=== PATIENT | male | born 1990 | race Caucasian/White ===

== ENCOUNTER 2017-06-07 21:42 | Emergency (ER) | payer MEDICAID ==
[2017-06-07] MEDS ORDERED: HYDROmorphone HCL 2 MG/ML VIAL SC ONE (22:15)
[2017-06-07] MEDS ORDERED: METHYLPREDNISOLONE SOD SUCC/PF 125 MG/2 ML VIAL IM ONE (22:15)
[2017-06-07] MEDS ORDERED: HYDROmorphone HCL 2 MG/ML VIAL ONE (22:25)
[2017-06-07] MEDS ORDERED: METHYLPREDNISOLONE SOD SUCC/PF 125 MG/2 ML VIAL ONE (22:25)
--- NOTE | 2017-06-07 22:29 | ERNOTE ---
Upper Extremity HPI - Narrative Date of Service: 06/07/17 - General Extremities Pain Location: shoulder: left Time Seen by Provider: 06/07/17 22:02 Source: patient - Immun/Allergies/Home Medications Immunizations: IMMUNIZATION HX Immunizations Up to Date Yes History of Influenza Vaccine No Hx Pneumococcal Vaccination No Allergies/Adverse Reactions: Allergies Allergy/AdvReac Type Severity Reaction Status Date / Time No Known Allergies Allergy Verified 06/07/17 21:56 Home Medications: HOME MEDICATIONS HYDROcodone/ACETAMINOPHEN [[place] 10-325 Tablet] 1 - 2 each PO Q4H PRN #20 tablet 06/07/17 [Last Taken Unknown] predniSONE [Prednisone] 3 tab PO DAILY #15 tab 06/07/17 [Last Taken Unknown] - History of Present Illness Narrative: This is a 26-year-old right-hand dominant male who comes to the emergency department complaining of severe pain involving his left shoulder for the last couple of days. 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 The patient denies any recent trauma. He denies falling or hitting the shoulder on anything. He says the pain was in his right shoulder up until a couple of days ago. He was treated with hydrocodone and Robaxin along with anti-inflammatories for the right shoulder pain and says that Better the pain on the left shoulder is not getting better with the same treatment. Patient says occasionally he will get sharp electric-like jolts down to his elbow. He denies any loss of strength. He says most of the pain is posteriorly along the along the medial and inferior aspects of the left scapula. No other skin symptoms or complaints Review of Systems - Review of Systems Constitutional: Present: no symptoms reported EYE: Present: no symptoms reported ENT: Present: no symptoms reported Respiratory: Present: no symptoms reported Cardiology: Present: no symptoms reported Gastrointestinal/Abdominal: Present: no symptoms reported Musculoskeletal: Present: See HPI, muscle pain, neck pain Neurological: Present: no symptoms reported Endocrine: Present: no symptoms reported Hematologic/Lymphatic: Present: no symptoms reported Psych: Present: no symptoms reported All Other Systems: All systems neg except as marked - Patient's Past Medical History Patient History - Medical: No pertinent hx Patient History - Cardiac/Respiratory: No pertinent hx Patient History - Cancer: No Hx of Cancer Patient History - Surgical Procedures: Ear Tubes Patient History - Other: None - Family History Mother Family History - Medical: Diabetes Type 2 Family History - Cardiac/Respiratory: Hypertension, Hyperlipidemia Father Family History - Medical: History Unknown - Social History Living Situations: home Abuse History: No History of abuse Psych History: No pertinent hx Smoking Status: Current every day smoker Have you smoked in the past 12 months: Yes Do you dip or chew tobacco: No Patient requests Smoking Cessation Consult: No Initiate information on Smoking Cessation: No Alcohol Use: rarely Drug Use: none - Immunizations Immunizations Up to Date: Yes Hx Pneumococcal Vaccination: No History of Influenza Vaccine: No Physical Exam - Physical Exam General Appearance: Present: wd/wn, alert, other - well-developed well- nourished gentleman sitting up in a chair. He appears to be uncomfortable but is not in distress. Head Exam: Present: normal inspection, no evidence of injury Eye Exam: Normal inspection: bilateral, PERRL: bilateral, EOMI: bilateral Ears, Nose, Throat: Present: normal ENT inspection, normal pharynx Neck: Present: normal inspection, nontender, other - patient is holding his neck angled to the right. This is opening the neural foramen on the left. This is the resting position which makes him most comfortable. There are no masses palpable. Respiratory: Present: no respiratory distress, normal breath sounds, no accessory muscle use, lungs clear Cardiovascular/Chest: Present: regular rate, rhythm, no murmur, normal peripheral pulses Gastrointestinal/Abdominal: Present: normal bowel sounds, nontender, nondistended, soft, no organomegaly Back Exam: Present: other - patient has no vertebral tenderness in the cervical spine or the thoracic spine. No reproducible tenderness to palpation of any of the muscles or in any of the areas where he is having discomfort. Extremity Exam: Present: normal inspection, non-tender, normal range of motion, no edema, other - full range of motion of the shoulder arm and hand. The pain while it is located in these areas does not seem to originate there Neurological Exam: Present: alert, oriented, normal mood/affect, no motor/ sensory deficits, other - distal motor and sensory in the left upper extremity are normal pulses are her normal Skin Exam: Present: normal color, warm/dry Lymphatic Exam: Present: no adenopathy ED Progress - Vital Signs Patient's Vital Signs:: I have reviewed the patient's vital signs. Vital Signs: Vital Signs 06/07/17 21:56 Temperature 37 C Pulse Rate 76 Respiratory 12 Rate Blood Pressure 137/76 O2 Sat by Pulse 98 Oximetry - Progress/Reassessment Chief Complaint: Shoulder Injury/Pain Plan - Plan Plan: I discussed with the patient that his symptoms certainly sound like cervical radiculopathy. The characteristic location of the pain inferior and medial to the scapula is commonly described in C5 6 disc disease. I've explained to him that the tests necessary to make an appropriate diagnosis is an MRI and that this is not available. He shortly certainly does not show any signs of myelopathy or significant neuropathy. His primary symptoms pain. I'm going to therefore came treatment at alleviation of the symptoms. I have given him a dose of steroids here and I will send him home with 5 days of steroids. He is instructed to stop the Robaxin, it has absolutely no utility in upper back pain. It is only been shown to be effective for acute lower back pain of less than 2 weeks duration and then only in individuals under the age of 55. I have instructed him to continue taking the ibuprofen as he has been. This is 800 mg every 8 hours. He was previously on hydrocodone 5 mg but admits to taking 2 of them was not adequate to help with his pain. I will give him an additional prescription for 10 mg Greybull he can take 1 or 2 every 4 hours as needed for pain. The patient does have a family doctor. He will call on Friday and tell them they need to get him in. He will need an MRI. I discussed this with the family and the patient and they are happy with this Departure Clinical Impression: Cervical radiculopathy - Departure Disposition: Home self-care Condition: Stable Instructions: Cervical Radiculopathy, [id number] Additional Instructions: As we discussed, the symptoms are describing are what I would expect if you had an irritated nerve in your neck. Unfortunately, the test to appropriately diagnose this, and MRI, is not available this evening or tomorrow. I want you to call your family doctor on Friday, make sure you tell him you were seen in the emergency department and that the emergency doctor once he did have a neck MRI to look for a pinched nerve. He should be able to schedule this for you I want you to take the prescribed prednisone. Take it for all 5 days. Continue taking ibuprofen. Take 800 mg every 8 hours. I want you to take the prescribed Greybull. If one tablet is not adequate he may take 2. He may take 2 tablets of the 10 mg hydrocodone every 4 hours as needed for pain. If you develop weakness in her hand. If you develop complete numbness which doesn't get better in her hand, or you develop any new worrisome symptoms he needs to return to the ER immediately. Referrals: Tony Mercado APRN [Primary Care Provider] - Prescriptions: HYDROcodone/ACETAMINOPHEN [[place] 10-325 Tablet] 1 - 2 each PO Q4H PRN #20 tablet PRN Reason: Pain predniSONE [Prednisone] 3 tab PO DAILY #15 tab
[2017-06-07 23:02] VITALS: BP 135/86
== END 2017-06-07 22:58 | disposition home or self-care (01) ==
LOC: ER 21:42
DX: M54.12 Radiculopathy, cervical region (principal); F17.200 Nicotine dependence, unspecified, uncomplicated

== ENCOUNTER 2017-08-11 12:00 | Emergency (ER) | payer MEDICAID ==
[2017-08-11 12:08] VITALS: BP 137/98
--- NOTE | 2017-08-11 12:38 | ERNOTE ---
Back Pain ER HPI Time Seen by Provider: 08/11/17 12:11 Source: patient Exam Limitations: no limitations Immunizations: IMMUNIZATION HX Immunizations Up to Date Yes History of Influenza Vaccine No Hx Pneumococcal Vaccination No Allergies/Adverse Reactions: Allergies No Known Allergies Allergy (Verified 08/11/17 12:09) Home Medications: HOME MEDICATIONS HYDROcodone/ACETAMINOPHEN [[place] 5-325] 1 tab PO Q4H PRN 08/11/17 [Last Taken Unknown] Narrative: Patient states that he had neck surgery a week ago by Dr Gerardo ([facility], [place]) he was discharge on the same day he had surgery on vicodin for pain controll. He pain had been getting better but then got worse again yesterday during the day. He denies any injury (has been sleeping on the couch at times) no weakness , no numbness, no fever. The pain is worse in the occipital area at the base of the skull Timing: Reports: getting worse Quality/Severity: Reports: severe Activities at Onset: Reports: none Modifying Factors - (Improves): Reports: other - pain meds Modifying Factors - (Worsens): Reports: movement flexion Associated Symptoms: Denies: fever/chills, problems urinating, difficulty walking, numbess/weakness in legs Prior Treament: Reports: recently seen Review of Systems - Review of Systems Constitutional: Present: recent illness - surgery. Absent: fever EYE: Absent: double vision ENT: Absent: nose congestion Respiratory: Absent: shortness of breath Cardiology: Absent: chest pain Gastrointestinal/Abdominal: Absent: nausea, vomiting, abdominal pain Genitourinary: Present: no symptoms reported Musculoskeletal: Present: See HPI Neurological: Absent: headache, dizziness/light-headedness, weakness, numbness - Patient's Past Medical History Patient History - Medical: Other - cervical radiculopathy Patient History - Cardiac/Respiratory: No pertinent hx Patient History - Cancer: No Hx of Cancer Patient History - Surgical Procedures: Ear Tubes, Other, Orthopedic Patient History - Other: None - Family History Mother Family History - Medical: Diabetes Type 2 Family History - Cardiac/Respiratory: Hypertension, Hyperlipidemia Father Family History - Medical: History Unknown - Social History Abuse History: No History of abuse Psych History: No pertinent hx Smoking Status: Current every day smoker Have you smoked in the past 12 months: Yes - Immunizations Immunizations Up to Date: Yes Hx Pneumococcal Vaccination: No History of Influenza Vaccine: No Physical Exam - Physical Exam General Appearance: Present: wd/wn, alert, no apparent distress Head Exam: Present: normal inspection, no evidence of injury Eye Exam: Normal inspection: bilateral Neck: Present: other - anterior scar without redness, drainage nor swelling, posterior neck diffusely slightly tender, able to move in all directions but decreased range of motion Respiratory: Present: no respiratory distress, normal breath sounds, lungs clear Cardiovascular/Chest: Present: regular rate, rhythm, no murmur Back Exam: Present: normal inspection Neurological Exam: Present: alert, oriented, normal mood/affect, no motor/ sensory deficits Skin Exam: Present: normal color, warm/dry ED Progress - Vital Signs Patient's Vital Signs:: I have reviewed the patient's vital signs. Vital Signs: Vital Signs 08/11/17 12:05 Temperature 37 C Pulse Rate 106 H Respiratory 12 Rate Blood Pressure 137/98 O2 Sat by Pulse 98 Oximetry - X-Ray X-Ray #1 X-Ray: c-spine - normal hardware alignment Interpretation: Reviewed by me - Progress/Reassessment Chief Complaint: Neck Pain/Injury Progress Note-Subjective: 08/11/17 12:27 call to [facility] discussed with Shannan Del Real (neurosurgery NRP) consider getting C-spine pa and lateral,consider starting muscle relaxant, needs to take narcotics as instructed (reports that he crushed an snorted narcotic pill prior to getting surgery), appointment tomorrow 13:30 08/11/17 13:05 discussed xray results and plan states that he has flexeril at home and takes it at night only with no significant relieve, still has vicodin #10 left Departure Clinical Impression: Post-op pain, H/O cervical spine surgery - Departure Disposition: Home self-care Condition: Good Additional Instructions: follow up with your neurosurgeon at [facility] tomorrow at 1:30 take your pain medication as scheduled
== END 2017-08-11 13:15 | disposition home or self-care (01) ==
LOC: ER 12:00
DX: G89.18 Other acute postprocedural pain (principal); Z98.890 Other specified postprocedural states; F17.200 Nicotine dependence, unspecified, uncomplicated

== ENCOUNTER 2017-10-23 03:43 | Emergency (ER) | payer MEDICAID ==
[2017-10-23] MEDS ORDERED: CYCLOBENZAPRINE HCL 10 MG TABLET PO ONE (04:16)
[2017-10-23] MEDS ORDERED: CYCLOBENZAPRINE HCL 10 MG TABLET ONE (04:17)
--- NOTE | 2017-10-23 04:25 | ERNOTE ---
Back Pain ER HPI Time Seen by Provider: 10/23/17 04:05 Source: patient Exam Limitations: no limitations Immunizations: IMMUNIZATION HX Immunizations Up to Date Yes History of Influenza Vaccine No Hx Pneumococcal Vaccination No Allergies/Adverse Reactions: Allergies No Known Allergies Allergy (Verified 08/11/17 12:09) Home Medications: HOME MEDICATIONS Cyclobenzaprine HCl [Flexeril] 10 mg PO TID PRN #30 tab 10/23/17 [Last Taken Unknown] Narrative: Patient has a history of chronic neck pain. He had surgery in [place] in 2016. He states the pain never got significantly better and is significantly worse tonight. He denies any new injury, has been released back to work without restrictions and his work at [employer] is very physical. He is taking tylenol and ibuprofen for the pain, denies any neurodeficit. Timing: Reports: constant, getting worse Quality/Severity: Reports: moderate Location of pain: Reports: no radiation Activities at Onset: Reports: none Recent Injury?: Reports: no Associated Symptoms: Denies: fever/chills, constipation/incontinence, nausea/ vomiting Prior Treament: Reports: treated by physician, similar symptoms before Review of Systems - Review of Systems Constitutional: Absent: recent illness, fever, chills EYE: Absent: vision changes ENT: Absent: nose congestion, sore throat Respiratory: Absent: shortness of breath Cardiology: Absent: chest pain Gastrointestinal/Abdominal: Absent: nausea, abdominal pain Genitourinary: Present: no symptoms reported Musculoskeletal: Present: See HPI Skin: Absent: rash Neurological: Absent: headache, weakness, numbness - Patient's Past Medical History Patient History - Medical: Chronic Pain, Other Patient History - Cardiac/Respiratory: No pertinent hx Patient History - Cancer: No Hx of Cancer Patient History - Surgical Procedures: Ear Tubes, Other, Orthopedic Patient History - Other: None - Family History Mother Family History - Medical: Diabetes Type 2 Family History - Cardiac/Respiratory: Hypertension, Hyperlipidemia Father Family History - Medical: History Unknown - Social History Living Situations: alone Abuse History: No History of abuse Psych History: No pertinent hx Smoking Status: Current every day smoker Have you smoked in the past 12 months: Yes Do you dip or chew tobacco: No Alcohol Use: none Drug Use: none - Immunizations Immunizations Up to Date: Yes Hx Pneumococcal Vaccination: No History of Influenza Vaccine: No Physical Exam - Physical Exam General Appearance: Present: wd/wn, alert, no apparent distress Head Exam: Present: normal inspection Ears, Nose, Throat: Present: normal pharynx Neck: Present: normal inspection, tender lateral - bilateral muscle spasms, other - slightly decreased ROM. Absent: tender posterior midline Respiratory: Present: no respiratory distress, normal breath sounds, no accessory muscle use, lungs clear Cardiovascular/Chest: Present: regular rate, rhythm, no murmur Gastrointestinal/Abdominal: Present: nontender Back Exam: Present: normal inspection, no vertebral tenderness Neurological Exam: Present: alert, oriented, normal mood/affect, no motor/ sensory deficits Skin Exam: Present: normal color, warm/dry ED Progress - Vital Signs Patient's Vital Signs:: I have reviewed the patient's vital signs. Vital Signs: Vital Signs 10/23/17 03:53 Temperature 37.1 C Pulse Rate 90 Respiratory 18 Rate Blood Pressure 120/80 O2 Sat by Pulse 99 Oximetry - Progress/Reassessment Chief Complaint: Neck Pain/Injury Departure Clinical Impression: H/O cervical spine surgery, Cervical spine pain - Departure Disposition: Home self-care Condition: Good Instructions: Spinal Fusion, [id number], Form - Excuse from Work, School, or Physical Activity Additional Instructions: call your neurosurgeon tomorrow for further instructions and work restrictions Prescriptions: Cyclobenzaprine HCl [Flexeril] 10 mg PO TID PRN #30 tab PRN Reason: MUSCLE SPASMS
[2017-10-23 04:31] VITALS: BP 112/77
== END 2017-10-23 04:22 | disposition home or self-care (01) ==
LOC: ER 03:43
DX: M54.2 Cervicalgia (principal); Z98.890 Other specified postprocedural states; G89.29 Other chronic pain; F17.200 Nicotine dependence, unspecified, uncomplicated

== ENCOUNTER 2017-11-11 21:32 | Emergency (ER) | payer MEDICAID ==
[2017-11-11 21:43] VITALS: BP 129/76
[2017-11-11] MEDS ORDERED: ORPHENADRINE CITRATE 30 MG/ML VIAL IM ONE (22:11)
[2017-11-11] MEDS ORDERED: KETOROLAC TROMETHAMINE 60 MG/2 ML VIAL IM ONE ×2 (22:11→22:17)
[2017-11-11] MEDS ORDERED: ORPHENADRINE CITRATE 30 MG/ML VIAL ONE (22:18)
--- NOTE | 2017-11-11 22:23 | ERNOTE ---
Headache ER HPI - General Presenting Symptoms: headache Time Seen by Provider: 11/11/17 21:58 Source: patient Exam Limitations: no limitations - Immun/Allergies/Home Medications Immunizations: IMMUNIZATION HX Immunizations Up to Date Yes History of Influenza Vaccine No Hx Pneumococcal Vaccination No Allergies/Adverse Reactions: Allergies No Known Allergies Allergy (Verified 11/11/17 21:42) Home Medications: HOME MEDICATIONS Cyclobenzaprine HCl [Flexeril] 10 mg PO TID PRN #30 tab 10/23/17 [Last Taken Unknown] - Pain Pain Score: 6 - History of Present Illness Narrative: Pt states that he has a headache every day since he had surgery on his cervical discs. Today it is worse and he has not been able to reduce it with OTC medications. He has an appointment with his spine surgeon tomorrow. Timing of Headache: gradual, worse Quality: Present: pressure, throbbing - from cervical spine up to temples, bilateral. Severity Maximum: Present: moderate Severity-Currently: Present: moderate Headache frequency: Present: frequent headaches, chronic headaches Modifying Factors - (Improves): Reports: rest - usually helps to some degree. Associated Symptoms: Reports: denies symptoms Review of Systems - Review of Systems Constitutional: Absent: recent illness EYE: Absent: vision changes Gastrointestinal/Abdominal: Present: no symptoms reported Musculoskeletal: Present: muscle stiffness, neck pain Neurological: Absent: weakness, numbness, tingling - Patient's Past Medical History Patient History - Medical: Chronic Pain, Headache, Other Patient History - Cardiac/Respiratory: No pertinent hx Patient History - Cancer: No Hx of Cancer Patient History - Surgical Procedures: Ear Tubes, Other, Orthopedic Patient History - Other: None - Family History Mother Family History - Medical: Diabetes Type 2 Family History - Cardiac/Respiratory: Hypertension, Hyperlipidemia Father Family History - Medical: History Unknown - Social History Abuse History: No History of abuse Psych History: No pertinent hx Smoking Status: Current every day smoker Have you smoked in the past 12 months: Yes Do you dip or chew tobacco: No Alcohol Use: occasionally Drug Use: none - Immunizations Immunizations Up to Date: Yes Hx Pneumococcal Vaccination: No History of Influenza Vaccine: No Physical Exam - Physical Exam General Appearance: Present: wd/wn, alert, no apparent distress Head Exam: Present: normal inspection, no evidence of injury Neck: Present: tender lateral - more right than left. Absent: tender posterior midline Respiratory: Present: no respiratory distress, no accessory muscle use Back Exam: Present: no vertebral tenderness Extremity Exam: Present: normal inspection, normal range of motion, no edema Neurological Exam: Present: alert, oriented, normal mood/affect, no motor/ sensory deficits Skin Exam: Present: normal color, warm/dry Lymphatic Exam: Present: no adenopathy ED Progress - Vital Signs Vital Signs: Vital Signs 11/11/17 21:35 Temperature 36.5 C Pulse Rate 84 Respiratory 18 Rate Blood Pressure 129/76 O2 Sat by Pulse 99 Oximetry - Progress/Reassessment Chief Complaint: Headache Departure Clinical Impression: Tension headache - Departure Disposition: Home Follow Up Needed Condition: Good Instructions: Tension Headache, [id number] Additional Instructions: See your usual provider tomorrow as scheduled. Discuss pain center consult for more extra hand control of your pain. Try using 1/2 of a flexeril at bedtime and see if that helps over the extra hand. Referrals: Tony Mercado APRN [Primary Care Provider] -
== END 2017-11-11 22:26 | disposition home or self-care (01) ==
LOC: ER 21:32
DX: F17.200 Nicotine dependence, unspecified, uncomplicated; G44.209 Tension-type headache, unspecified, not intractable